=== PATIENT | male | born 1940 | race Caucasian/White ===

== ENCOUNTER 2025-09-24 06:02 | Day surgery (SDC) | payer MEDICARE, BC ==
[2025-09-24 06:57] LABS: PLATELET COUNT (AUTO) 137 K/uL (152-348); RED BLOOD CELL COUNT(AUTO) 5.30 MIL/uL (4.06-5.63); RED CELL DISTRIBUTION WIDTH 14.0 % (12.1-16.2); WHITE BLOOD COUNT (AUTO) 6.8 K/uL (3.6-10.2)
[2025-09-24 07:05] LABS: CREATININE 1.0 mg/dL (0.6-1.3); SODIUM SERUM 139 mmol/L (136-145); UREA NITROGEN, BLOOD 35 mg/dL (7-18)
[2025-09-24 07:10] LABS: ASPARTATE AMINOTRANSFERASE 12 U/L (15-37); TOTAL PROTEIN, SERUM 7.3 g/dL (6.4-8.2)
[2025-09-24 09:00] VITALS: BP 110/71; TEMP 96.8
== END 2025-09-24 09:00 | disposition home or self-care (01) ==
LOC: DS 06:02
PROVIDERS: ATTEND Internal Medicine Interventional Cardiology
DX: I48.4 Atypical atrial flutter (principal); I25.10 Atherosclerotic heart disease of native coronary artery without angina pectoris; I42.9 Cardiomyopathy, unspecified; I44.0 Atrioventricular block, first degree; I48.0 Paroxysmal atrial fibrillation; Z95.1 Presence of aortocoronary bypass graft; Z79.899 Other long term (current) drug therapy; Z98.890 Other specified postprocedural states
CPT/HCPCS: 36415; 71045; 80053; 82962; 85025; 85730; 92960; 93005; J7040; J7120; A4663